=== PATIENT | female | born 1990 | race Caucasian/White ===

== ENCOUNTER 2016-10-04 03:38 | Emergency (ER) | payer OTHER, MEDICAID ==
[2016-10-04] MEDS ORDERED: Ondansetron 4 MG/2 ML SDV IVPUSH ONE ×2 (04:08→04:40)
[2016-10-04] MEDS ORDERED: HYDROmorphone 0.5 MG/0.5 ML Syringe IVPUSH ONE ×2 (04:09→04:41)
[2016-10-04] MEDS ORDERED: Sodium Chloride 0.9% 1,000 ML IV SCH ×2 (04:15→05:10)
--- NOTE | 2016-10-04 04:16 | EDM.PDOC ---
ED HPI HEADACHE COMPLAINT - General Chief Complaint: Headache Stated Complaint: VOMITING AND HEADACHE Time Seen by Provider: 10/04/16 04:10 Source: Reports: Patient History Limitations: Reports: No limitations - History of Present Illness INITIAL COMMENTS - FREE TEXT/NARRATIVE: pt arrived with a rt sided headache which started yesterday about 2 thirty. She normally takes imitrex but she took one and vomited it up. She states this usually works for her. Timing/Duration: Reports: hour(s):, getting worse Location: Reports: temporal, right Quality: Reports: pounding Severity: Reports: severe Associated Symptoms: Reports: photophobia - Related Data Allergies/ADRs: Allergies Allergy/AdvReac Type Severity Reaction Status Date / Time amoxicillin [Amoxicillin] Allergy Unknown Rash Verified 10/04/16 03:51 Home Meds: Home Meds SUMAtriptan Succinate [Sumatriptan Succinate] 100 mg PO ASDIRECTED PRN 06/14/13 [History] Cyclobenzaprine HCl [Cyclobenzaprine HCl] 10 mg PO BEDTIME PRN 12/23/15 [History ] Vit/Iron Fumarate/FA [ Tablet] 1 tab PO DAILY 10/04/16 [History ] 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: Neurological History: Reports: Migraines Psychiatric History: Reports: Anxiety - Infectious Disease History Infectious Disease History: Reports: None - Past Surgical History HEENT Surgical History: Reports: Tonsillectomy GI Surgical History: Reports: Hernia, abdominal Female Surgical History: Reports: section Social & Family History - Tobacco Use Smoking Status *Q: Never Smoker Second Hand Smoke Exposure: No - Caffeine Use Caffeine Use: Reports: None - Alcohol Use Days Per Week of Alcohol Use: 1 Number of Drinks Per Day: 2 Total Drinks Per Week: 2 - Recreational Drug Use Recreational Drug Use: No - Living Situation & Occupation Living situation: Reports: single (living in [facility]) ED ROS GENERAL - Review of Systems Review Of Systems: See Below Constitutional: Reports: no symptoms HEENT: Reports: No symptoms Respiratory: Reports: no symptoms Cardiovascular: Reports: No symptoms Endocrine: Reports: no symptoms GI/Abdominal: Reports: Nausea, Vomiting : Reports: no symptoms Musculoskeletal: Reports: muscle pain, other ( cervical area. ) Skin: Reports: no symptoms Neurological: Reports: headache - Physical Exam Exam: See Below Text/Narrative:: pt has a rt sided headache with no visual symptoms except lite sensitivity. Exam Limited By: No limitations General Appearance: alert, severe distress Ears: normal TMs Nose: normal inspection Throat/Mouth: Normal inspection Head Exam: atraumatic Neck: normal inspection Respiratory/Chest: no respiratory distress Cardiovascular: regular rate, rhythm GI/Abdominal: soft, non tender Rectal (Female) Exam: Deferred Neuro Exam (Abbreviated): alert, oriented, normal cognition Back Exam: normal inspection Extremities: normal inspection Psychiatric: normal affect Course - Vital Signs Last Recorded V/S: Last Vital Signs Temp 36.2 C 10/04/16 03:52 Pulse 82 10/04/16 03:52 Resp 15 10/04/16 03:52 BP 142/67 H 10/04/16 03:52 Pulse Ox 97 10/04/16 03:52 - Orders/Labs/Meds Orders: Active Orders 24 hr Category Date Time Status Sodium Chloride 0.9% [Normal Saline] 1,000 ml Med 10/04/16 04:15 Active IV ASDIRECTED Sodium Chloride 0.9% [Normal Saline] 1,000 ml Med 10/04/16 05:10 Active IV ASDIRECTED Medication Orders Sodium Chloride (Normal Saline) 1,000 mls @ 999 mls/hr IV ASDIRECTED DEANNA Last Admin: 10/04/16 04:14 Dose: 999 mls/hr Sodium Chloride (Normal Saline) 1,000 mls @ 999 mls/hr IV ASDIRECTED DEANNA Last Admin: 10/04/16 05:12 Dose: 999 mls/hr Meds: Medications Generic Name Dose Route Start Last Admin Trade Name Freq PRN Reason Stop Dose Admin Sodium Chloride 1,000 mls @ 999 mls/hr 10/04/16 04:15 10/04/16 04:14 Normal Saline IV 999 mls/hr ASDIRECTED DEANNA Administration Sodium Chloride 1,000 mls @ 999 mls/hr 10/04/16 05:10 10/04/16 05:12 Normal Saline IV 999 mls/hr ASDIRECTED DEANNA Administration Discontinued Medications Generic Name Dose Route Start Last Admin Trade Name Freq PRN Reason Stop Dose Admin Hydromorphone HCl 0.5 mg 10/04/16 04:09 10/04/16 04:20 Dilaudid IVPUSH 10/04/16 04:10 0.5 mg ONETIME ONE Administration Hydromorphone HCl 0.5 mg 10/04/16 04:41 10/04/16 04:47 Dilaudid IVPUSH 10/04/16 04:42 0.5 mg ONETIME ONE Administration Lorazepam 0.5 mg 10/04/16 05:13 10/04/16 05:20 Ativan IVPUSH 10/04/16 05:14 0.5 mg ONETIME ONE Administration Lorazepam 0.5 mg 10/04/16 06:58 Ativan IVPUSH 10/04/16 06:59 ONETIME ONE Ondansetron HCl 4 mg 10/04/16 04:08 10/04/16 04:18 Zofran IVPUSH 10/04/16 04:09 4 mg ONETIME ONE Administration Ondansetron HCl 4 mg 10/04/16 04:40 10/04/16 04:46 Zofran IVPUSH 10/04/16 04:41 4 mg ONETIME ONE Administration - Re-Assessments/Exams Free Text/Narrative Re-Assessment/Exam: 10/04/16 07:03 pt was given dilaudid, ativan and zoforan and her pain is down to a 4-5 Departure - Departure Time of Disposition: 07:04 Disposition: Home, Self-Care 01 Condition: fair Clinical Impression: Migraine Forms: ED Department Discharge Care Plan Goals: rtc ifrest,push fluids. problems, - My Orders Last 24 Hours: My Active Orders 10/04/16 04:15 Sodium Chloride 0.9% [Normal Saline] 1,000 ml IV ASDIRECTED 10/04/16 05:10 Sodium Chloride 0.9% [Normal Saline] 1,000 ml IV ASDIRECTED - Assessment/Plan Last 24 Hours: My Active Orders 10/04/16 04:15 Sodium Chloride 0.9% [Normal Saline] 1,000 ml IV ASDIRECTED 10/04/16 05:10 Sodium Chloride 0.9% [Normal Saline] 1,000 ml IV ASDIRECTED
[2016-10-04] MEDS ORDERED: LORazepam 2 MG/ML MDV IVPUSH ONE ×2 (05:13→06:58)
[2016-10-04] MEDS ORDERED: Acetaminophen/oxyCODONE 325-5 MG Tab PO ONE (07:05)
[2016-10-04 07:21] VITALS: BP 111/68
== END 2016-10-04 07:25 | disposition home or self-care (01) ==
LOC: JP.ED 03:38
DX: G43.909 Migraine, unspecified, not intractable, without status migrainosus (principal); F41.9 Anxiety disorder, unspecified; Z98.890 Other specified postprocedural states; Z79.899 Other long term (current) drug therapy; Z88.1 Allergy status to other antibiotic agents
CPT/HCPCS: 96361; 96374; 96375; 96376; 99284; A9270; J1170; J2060; J2405; J7040

== ENCOUNTER 2016-10-11 14:10 | Emergency (ER) | payer OTHER, MEDICAID ==
[2016-10-11] MEDS ORDERED: Lidocaine 4% 5 ML Amp NEB ONE (15:24)
--- NOTE | 2016-10-11 15:33 | EDM.PDOC ---
<Christine Bacon - Last Filed: 10/11/16 17:31> ED HPI HEADACHE COMPLAINT - General Chief Complaint: Headache Stated Complaint: MIGRAINE, 9 WKS PREG Time Seen by Provider: 10/11/16 15:26 Source: Reports: Patient History Limitations: Reports: No limitations - History of Present Illness INITIAL COMMENTS - FREE TEXT/NARRATIVE: Pt arrived with a migraine headache mainly on the rt side. She has been vomiting. Timing/Duration: Reports: hour(s):, other ( Started about 6 am. ) Location: Reports: temporal, right Quality: Reports: pounding, squeezing Associated Symptoms: Reports: photophobia, other ( vomiting. 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: Neurological History: Reports: Migraines Psychiatric History: Reports: Anxiety - Infectious Disease History Infectious Disease History: Reports: None - Past Surgical History HEENT Surgical History: Reports: Tonsillectomy GI Surgical History: Reports: Hernia, abdominal Female Surgical History: Reports: section Social & Family History - Tobacco Use Smoking Status *Q: Never Smoker Second Hand Smoke Exposure: No - Caffeine Use Caffeine Use: Reports: None - Alcohol Use Days Per Week of Alcohol Use: 1 Number of Drinks Per Day: 2 Total Drinks Per Week: 2 - Recreational Drug Use Recreational Drug Use: No - Living Situation & Occupation Living situation: Reports: single (living in [facility]) ED ROS GENERAL - Review of Systems Review Of Systems: See Below Constitutional: Reports: no symptoms HEENT: Reports: No symptoms Respiratory: Reports: no symptoms Cardiovascular: Reports: No symptoms Endocrine: Reports: no symptoms GI/Abdominal: Reports: Vomiting Musculoskeletal: Reports: no symptoms Skin: Reports: no symptoms Neurological: Reports: headache Psychiatric: Reports: No symptoms - Physical Exam Exam: See Below Text/Narrative:: Pt arrived with a severe headache on the rt side. Exam Limited By: No limitations General Appearance: alert, anxious Ears: normal TMs Nose: normal inspection Throat/Mouth: Normal inspection Head Exam: atraumatic Neck: normal inspection Respiratory/Chest: no respiratory distress Cardiovascular: regular rate, rhythm GI/Abdominal: soft, non tender Rectal (Female) Exam: Deferred Neuro Exam (Abbreviated): alert, oriented, normal cognition Back Exam: normal inspection Extremities: normal inspection Psychiatric: anxious Course - Vital Signs Last Recorded V/S: Last Vital Signs Temp 37.3 C 10/11/16 19:22 Pulse 72 10/11/16 19:22 Resp 16 10/11/16 19:22 BP 117/68 10/11/16 19:22 Pulse Ox 99 10/11/16 19:22 - Orders/Labs/Meds Orders: Active Orders 24 hr Category Date Time Status Sodium Chloride 0.9% [Normal Saline] 1,000 ml Med 10/11/16 17:30 Active IV ASDIRECTED Medication Orders Sodium Chloride (Normal Saline) 1,000 mls @ 999 mls/hr IV ASDIRECTED DEANNA Last Admin: 10/11/16 19:18 Dose: 999 mls/hr Infusion: 10/11/16 18:56 Dose: 999 mls/hr Admin: 10/11/16 17:55 Dose: 999 mls/hr Meds: Medications Generic Name Dose Route Start Last Admin Trade Name Freq PRN Reason Stop Dose Admin Sodium Chloride 1,000 mls @ 999 mls/hr 10/11/16 17:30 10/11/16 19:18 Normal Saline IV 999 mls/hr ASDIRECTED DEANNA Administration Discontinued Medications Generic Name Dose Route Start Last Admin Trade Name Freq PRN Reason Stop Dose Admin Acetaminophen/Hydrocodone Bitart 1 tab 10/11/16 16:57 10/11/16 17:03 [place] 325-5 Mg PO 10/11/16 16:58 1 tab ONETIME ONE Administration Hydromorphone HCl 0.5 mg 10/11/16 17:31 10/11/16 17:56 Dilaudid IVPUSH 10/11/16 17:32 0.5 mg ONETIME ONE Administration Hydromorphone HCl 1 mg 10/11/16 18:39 10/11/16 19:16 Dilaudid IVPUSH 10/11/16 18:40 1 mg ONETIME ONE Administration Sodium Chloride 1,000 mls @ 999 mls/hr 10/11/16 19:17 10/11/16 19:18 Normal Saline IV 10/11/16 20:17 Not Given .BOLUS ONE Lidocaine HCl 5 ml 10/11/16 15:24 10/11/16 15:55 Xylocaine-Mpf 4% NEB 10/11/16 15:25 5 ml ONETIME ONE Administration Ondansetron HCl 4 mg 10/11/16 15:36 10/11/16 15:55 Zofran Odt PO 10/11/16 15:37 4 mg ONETIME ONE Administration Ondansetron HCl 4 mg 10/11/16 17:30 10/11/16 17:54 Zofran IVPUSH 10/11/16 17:31 4 mg ONETIME ONE Administration Ondansetron HCl 4 mg 10/11/16 19:53 10/11/16 20:03 Zofran IVPUSH 10/11/16 19:54 4 mg ONETIME ONE Administration - Re-Assessments/Exams Free Text/Narrative Re-Assessment/Exam: 10/11/16 17:01 pt was given 1.5 cc of lidocain in each nostril with an atomixer as a trial to relieve the migraine headache. She was given zoforan 4mg subling for her nausea. She was also given norco 5/325 . 10/11/16 17:31 pt did not get relief with the lidocaine. She was given zoforan iv and dilaudid .5 and a liter of fluid. Departure - Departure Disposition: Home, Self-Care 01 Clinical Impression: Migraine Forms: ED Department Discharge Additional Instructions: Please followup with your doctor to see if he or she could help you with your migraines and we'll be happy to see you back if you need to see us again for your migraines <Darrel Cardoso - Last Filed: 10/11/16 20:45> ED HPI HEADACHE COMPLAINT - History of Present Illness INITIAL COMMENTS - FREE TEXT/NARRATIVE: Patient is doing some better and wants to go and then try to get some sleep now. She has received 2 L of fluids and I did give her 1 mg of Dilaudid and also some more Zofran her is here to take her home. Departure - Departure Time of Disposition: 20:45
[2016-10-11] MEDS ORDERED: Ondansetron 4 MG Tab.DIS PO ONE (15:36)
[2016-10-11] MEDS ORDERED: Acetaminophen/HYDROcodone 325-5 MG Tab PO ONE (16:57)
[2016-10-11] MEDS ORDERED: Ondansetron 4 MG/2 ML SDV IVPUSH ONE ×2 (17:30→19:53)
[2016-10-11] MEDS ORDERED: HYDROmorphone 0.5 MG/0.5 ML Syringe IVPUSH ONE (17:31)
[2016-10-11] MEDS: Sodium Chloride 0.9% 1,000 ML IV SCH ×2 (17:55→19:18)
[2016-10-11] MEDS ORDERED: HYDROmorphone 1 MG/ML Syringe IVPUSH ONE (18:39)
[2016-10-11] MEDS ORDERED: Sodium Chloride 0.9% 1,000 ML IV ONE (19:17)
[2016-10-11 19:24] VITALS: BP 117/68
== END 2016-10-11 20:57 | disposition home or self-care (01) ==
LOC: JP.ED 14:10
DX: G43.909 Migraine, unspecified, not intractable, without status migrainosus (principal); F41.9 Anxiety disorder, unspecified; Z98.890 Other specified postprocedural states; Z88.1 Allergy status to other antibiotic agents; Z79.899 Other long term (current) drug therapy
CPT/HCPCS: 96361; 96374; 96375; 96376; 99283; A9270; J1170; J2405; J7040

== ENCOUNTER 2016-11-16 19:53 | Emergency (ER) | payer MEDICAID, OTHER ==
[2016-11-16 20:44] VITALS: BP 126/72
[2016-11-16] MEDS ORDERED: Sodium Phosphate,Monobasic/Sodium Phosphate,Dibasic Enema 133 ML Bottle RECTAL ONE ×2 (20:58→22:04)
--- NOTE | 2016-11-16 23:06 | EDM.PDOC ---
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 She basically is presenting now because she feels constipated. She has not had a good bowel movement for over a week. Her OB doctor recommended MiraLax which she took but now she's having some cramping. She's had no fevers or chills nausea or vomiting. Her appointments at the OB doctor went well today she's had an ultrasound confirming dates.] Review of systems: As per history of present illness and below otherwise all systems reviewed and negative. Past medical history: As per history of present illness and as reviewed below otherwise noncontributory. Surgical history: As per history of present illness and as reviewed below otherwise noncontributory. Social history: No reported history of drug or alcohol abuse. Family history: As per history of present illness and as reviewed below otherwise noncontributory. Physical exam: HEENT: Atraumatic, normocephalic, pupils reactive, negative for conjunctival pallor or scleral icterus, mucous membranes moist, throat clear, neck supple, nontender, trachea midline. Lungs: Clear to auscultation, breath sounds equal bilaterally, chest nontender. Heart: S1S2, regular, negative for clicks, rubs, or JVD. Abdomen: She does have some diffuse tenderness to palpation throughout her upper abdomen. It is doughy in consistency bowel sounds are present Pelvis: Stable nontender. Genitourinary: Deferred. Rectal: Deferred. Extremities: Atraumatic, negative for cords or calf pain. Neurovascular unremarkable. Neuro: Awake, alert, oriented. Cranial nerves II through XII unremarkable. Cerebellum unremarkable. Motor and sensory unremarkable throughout. Exam nonfocal. Diagnostics: [] Therapeutics: [Give her 2 fleets enemas and she passed a lot of gas and felt better but very little stool] Impression: [Constipation] Plan: [She will continue to try to help herself at home at this point. She has been educated that that she can do this at home now.] Definitive disposition and diagnosis as appropriate pending reevaluation and review of above. 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: Neurological History: Reports: Migraines Psychiatric History: Reports: Anxiety - Infectious Disease History Infectious Disease History: Reports: Chicken pox - Past Surgical History HEENT Surgical History: Reports: Tonsillectomy GI Surgical History: Reports: Hernia, abdominal Female Surgical History: Reports: section Social & Family History - Tobacco Use Smoking Status *Q: Never Smoker Second Hand Smoke Exposure: No - Caffeine Use Caffeine Use: Reports: None - Alcohol Use Days Per Week of Alcohol Use: 1 Number of Drinks Per Day: 2 Total Drinks Per Week: 2 - Recreational Drug Use Recreational Drug Use: No - Living Situation & Occupation Living situation: Reports: single (living in [facility]) ED ROS GENERAL - Review of Systems Review Of Systems: ROS reveals no pertinent complaints other than HPI. ED EXAM, GI/ABD - Physical Exam Exam: See Below Course - Vital Signs Last Recorded V/S: Last Vital Signs Temp 35.8 C 11/16/16 20:34 Pulse 87 11/16/16 20:34 Resp 18 11/16/16 20:34 BP 126/72 11/16/16 20:34 Pulse Ox 100 11/16/16 20:34 - Orders/Labs/Meds Meds: Medications Discontinued Medications Generic Name Dose Route Start Last Admin Trade Name Freq PRN Reason Stop Dose Admin Sodium Biphosphate/Sodium Phosphate 133 ml 11/16/16 20:58 11/16/16 21:41 Fleet Enema RECTAL 11/16/16 20:59 133 ml ONETIME ONE Administration Sodium Biphosphate/Sodium Phosphate 133 ml 11/16/16 22:04 11/16/16 22:27 Fleet Enema RECTAL 11/16/16 22:05 133 ml ONETIME ONE Administration Departure - Departure Time of Disposition: 23:05 Disposition: Home, Self-Care 01 Condition: good Clinical Impression: Constipation Qualifiers: Constipation type: unspecified constipation type Qualified Code(s): K59.00 - Constipation, unspecified Forms: ED Department Discharge
== END 2016-11-16 23:17 | disposition home or self-care (01) ==
LOC: JP.ED 19:53
DX: O99.89 Other specified diseases and conditions complicating pregnancy, childbirth and the puerperium (principal); K59.00 Constipation, unspecified; F41.9 Anxiety disorder, unspecified; Z88.1 Allergy status to other antibiotic agents; Z79.899 Other long term (current) drug therapy; Z98.890 Other specified postprocedural states; Z3A.15 15 weeks gestation of pregnancy
CPT/HCPCS: 99284; A9270

== ENCOUNTER 2019-09-08 09:32 | Emergency (ER) | payer MEDICAID ==
[2019-09-08 09:53] VITALS: BP 124/61; PULSE 85
[2019-09-08] MEDS ORDERED: Ondansetron 4 MG/2 ML SDV IVPUSH ONE (10:04)
[2019-09-08] MEDS ORDERED: Ketorolac 30 MG/ML SDV IVPUSH ONE (10:04)
[2019-09-08] MEDS ORDERED: methylPREDNISolone Sodium Succinate 125 MG/2 ML SDV IVPUSH ONE (10:04)
--- NOTE | 2019-09-08 10:11 | EDM.PDOC ---
ED HPI GENERAL MEDICAL PROBLEM - General Chief Complaint: Headache Stated Complaint: MIGRAINE Time Seen by Provider: 09/08/19 09:55 Source of Information: Reports: Patient History Limitations: Reports: No Limitations - History of Present Illness INITIAL COMMENTS - FREE TEXT/NARRATIVE: 28-year-old female with chronic migraines has had a persistent right-sided headache for the past week. It has waxed and waned and she has used a couple doses of Imitrex with variable results. She missed work today so came in to get more aggressive treatment. Nauseated but no vomiting. No fevers or chills, no cold symptoms. Onset: Gradual Duration: Day(s): (7 days), Waxing/Waning Location: Reports: Head (Especially right frontal and right parietal with some periorbital involvement) Associated Symptoms: Reports: Other (Nausea but no vomiting) Right Headache Pain Score (Numeric/FACES): 10 - Related Data Allergies Allergy/AdvReac Type Severity Reaction Status Date / Time amoxicillin [Amoxicillin] Allergy Unknown Rash Verified 07/21/18 22:21 Home Meds: Home Meds SUMAtriptan succinate [Sumatriptan Succinate] 100 mg PO ASDIRECTED PRN 06/14/13 [History] Citalopram Hydrobromide [Celexa] 20 mg PO DAILY 02/19/17 [History] QUEtiapine [SEROquel XR] 50 mg PO BEDTIME 09/08/19 [History] 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: Neurological History: Reports: Migraines Psychiatric History: Reports: Anxiety - Infectious Disease History Infectious Disease History: Reports: Chicken Pox - Past Surgical History HEENT Surgical History: Reports: Tonsillectomy GI Surgical History: Reports: Hernia, Abdominal Female Surgical History: Reports: Section Social & Family History - Tobacco Use Smoking Status *Q: Never Smoker - Caffeine Use Caffeine Use: Reports: Coffee, Soda - Recreational Drug Use Recreational Drug Use: No - Living Situation & Occupation Living situation: Reports: Single (has two children, lives with Parents.) ED ROS GENERAL - Review of Systems Review Of Systems: See Below Constitutional: Reports: Malaise. Denies: Fever, Chills HEENT: Denies: Vision Change (Some photophobia but no vision changes) Respiratory: Denies: Shortness of Breath Cardiovascular: Denies: Chest Pain GI/Abdominal: Reports: Nausea. Denies: Abdominal Pain, Diarrhea, Vomiting Musculoskeletal: Reports: No Symptoms Skin: Reports: No Symptoms Neurological: Reports: Headache. Denies: Confusion, Dizziness, Difficulty Walking, Weakness, Gait Disturbance - Physical Exam Exam: See Below Exam Limited By: No Limitations General Appearance: Alert, No Apparent Distress (Looks uncomfortable, photophobic but no acute distress) Eye Exam: Bilateral Eye: Normal Inspection Head Exam: Atraumatic Respiratory/Chest: No Respiratory Distress Neuro Exam (Abbreviated): Alert, Oriented, No Motor/Sensory Deficits Skin Exam: Warm, Dry Course - Vital Signs Last Recorded V/S: Last Vital Signs Temp 95.9 F 09/08/19 09:54 Pulse 85 09/08/19 09:54 Resp 16 09/08/19 09:54 BP 124/61 09/08/19 09:54 Pulse Ox 98 09/08/19 09:54 - Orders/Labs/Meds Meds: Medications Discontinued Medications Generic Name Dose Route Start Last Admin Trade Name Freq PRN Reason Stop Dose Admin Hydromorphone HCl 0.5 mg 09/08/19 10:49 09/08/19 10:53 Dilaudid IVPUSH 09/08/19 10:50 0.5 mg ONETIME ONE Administration Sodium Chloride 1,000 mls @ 1,000 mls/hr 09/08/19 10:15 09/08/19 10:13 Normal Saline IV 1,000 mls/hr ASDIRECTED DEANNA Administration Ketorolac Tromethamine 30 mg 09/08/19 10:04 09/08/19 10:10 Toradol IVPUSH 09/08/19 10:05 30 mg ONETIME ONE Administration Methylprednisolone Sodium Succinate 125 mg 09/08/19 10:04 09/08/19 10:40 Solu-Medrol IVPUSH 09/08/19 10:05 125 mg ONETIME ONE Administration Ondansetron HCl 4 mg 09/08/19 10:04 09/08/19 10:13 Zofran IVPUSH 09/08/19 10:05 4 mg ONETIME ONE Administration - Re-Assessments/Exams Free Text/Narrative Re-Assessment/Exam: 09/08/19 10:12 An IV was started, patient was given 1 L normal saline, 4 mg of IV Zofran and 30 mg of IV Toradol. This was followed by 125 mg of Solu-Medrol. She'll be reevaluated in 30-45 minutes. 09/08/19 10:45 Pain is moderately improved, patient will be given 1 mg of IV Dilaudid and discharged. She has responded well to this in the past. Rest today and recheck tomorrow as scheduled, she already has an appointment with her primary provider. Departure - Departure Time of Disposition: 10:59 Disposition: Home, Self-Care 01 Clinical Impression: Migraine headache Qualifiers: Migraine type: without aura Status migrainosus presence: without status migrainosus Intractability: not intractable Qualified Code(s): G43.009 - Migraine without aura, not intractable, without status migrainosus - Discharge Information Instructions: Migraine Headache, [id number] Referrals: PCP,None [Primary Care Provider] - Forms: ED Department Discharge Care Plan Goals: Rest today, continue your current medications and recheck tomorrow as scheduled. Sepsis Event Note - Evaluation Sepsis Screening Result: No Definite Risk - Focused Exam Vital Signs: Vital Signs Temp Pulse Resp BP Pulse Ox 09/08/19 09:54 95.9 F 85 16 124/61 98 09/08/19 09:52 95.9 F 85 16 124/61 98 Date Exam was Performed: 09/08/19 Time Exam was Performed: 11:12
[2019-09-08] MEDS ORDERED: Sodium Chloride 0.9% 1,000 ML IV SCH (10:15)
[2019-09-08] MEDS ORDERED: HYDROmorphone 0.5 MG/0.5 ML Syringe IVPUSH ONE (10:49)
== END 2019-09-08 10:59 | disposition home or self-care (01) ==
LOC: JP.ED 09:32
DX: G43.009 Migraine without aura, not intractable, without status migrainosus (principal); Z88.0 Allergy status to penicillin
CPT/HCPCS: 96361; 96374; 96375; 99284; J1170; J1885; J2405; J2930; J7030

== ENCOUNTER 2019-11-06 11:54 | Emergency (ER) | payer MEDICAID ==
[2019-11-06] MEDS ORDERED: Lactated Ringers 1,000 ML IV ONE (12:40)
[2019-11-06] MEDS ORDERED: Ketorolac 30 MG/ML SDV IVPUSH ONE (12:40)
[2019-11-06] MEDS ORDERED: Ondansetron 4 MG/2 ML SDV IVPUSH ONE (12:40)
[2019-11-06] MEDS ORDERED: diphenhydrAMINE 50 MG/ML SDV IVPUSH ONE (12:41)
[2019-11-06] MEDS ORDERED: Prochlorperazine 10 MG/2 ML SDV IVPUSH ONE (12:41)
[2019-11-06] MEDS ORDERED: Sodium Chloride 0.9% 10 ML Syringe FLUSH PRN (12:41)
--- NOTE | 2019-11-06 12:47 | EDM.PDOC ---
ED HPI GENERAL MEDICAL PROBLEM - General Chief Complaint: Headache Stated Complaint: MIGRAINE WITH VOMITING Time Seen by Provider: 11/06/19 12:36 Source of Information: Reports: Patient, Old Records, RN Notes Reviewed History Limitations: Reports: No Limitations - History of Present Illness INITIAL COMMENTS - FREE TEXT/NARRATIVE: 28-year-old female presents emergency department today complaint of migraine headache, she has a long history of migraine headaches this 1 started at 630 this morning she did take her Imitrex without relief she states it is typical migraine for her photophobia with nausea and vomiting last migraine was about 2 months prior Headache Pain Score (Numeric/FACES): 10 - Related Data Allergies Allergy/AdvReac Type Severity Reaction Status Date / Time amoxicillin [Amoxicillin] Allergy Mild Rash Verified 11/06/19 12:08 Home Meds: Home Meds SUMAtriptan succinate [Sumatriptan Succinate] 100 mg PO ASDIRECTED PRN 06/14/13 [History] Citalopram Hydrobromide [Celexa] 20 mg PO DAILY 02/19/17 [History] QUEtiapine [SEROquel XR] 50 mg PO BEDTIME 09/08/19 [History] 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: Neurological History: Reports: Migraines Psychiatric History: Reports: Anxiety - Infectious Disease History Infectious Disease History: Reports: Chicken Pox - Past Surgical History HEENT Surgical History: Reports: Tonsillectomy GI Surgical History: Reports: Hernia, Abdominal Female Surgical History: Reports: Section Social & Family History - Tobacco Use Smoking Status *Q: Never Smoker - Caffeine Use Caffeine Use: Reports: None - Recreational Drug Use Recreational Drug Use: No - Living Situation & Occupation Living situation: Reports: Single (has two children, lives with Parents.) ED ROS GENERAL - Review of Systems Review Of Systems: See Below Constitutional: Reports: No Symptoms HEENT: Reports: Eye Pain Respiratory: Reports: No Symptoms Cardiovascular: Reports: No Symptoms GI/Abdominal: Reports: Nausea, Vomiting. Denies: Abdominal Pain Neurological: Reports: Headache - Physical Exam Exam: See Below Exam Limited By: No Limitations General Appearance: Alert, WD/WN, No Apparent Distress Eye Exam: Bilateral Eye: EOMI, Normal Fundi, Normal Inspection, PERRL Respiratory/Chest: No Respiratory Distress Course - Vital Signs Last Recorded V/S: Last Vital Signs Temp 95.4 F L 11/06/19 12:03 Pulse 75 11/06/19 13:47 Resp 18 11/06/19 13:47 BP 96/44 L 11/06/19 13:47 Pulse Ox 99 11/06/19 13:47 - Orders/Labs/Meds Orders: Active Orders 24 hr Category Date Time Status Peripheral IV Care [RC] . DIRECTED Care 11/06/19 12:41 Active Sodium Chloride 0.9% [Saline Flush] Med 11/06/19 12:41 Active 10 ml FLUSH ASDIRECTED PRN Peripheral IV Insertion Adult [OM.PC] Urgent Oth 11/06/19 12:40 Ordered Medication Orders Sodium Chloride (Saline Flush) 10 ml FLUSH ASDIRECTED PRN PRN Reason: Keep Vein Open Last Admin: 11/06/19 13:10 Dose: 10 ml Meds: Medications Generic Name Dose Route Start Last Admin Trade Name Freq PRN Reason Stop Dose Admin Sodium Chloride 10 ml 11/06/19 12:41 11/06/19 13:10 Saline Flush FLUSH 10 ml ASDIRECTED PRN Administration Keep Vein Open Discontinued Medications Generic Name Dose Route Start Last Admin Trade Name Freq PRN Reason Stop Dose Admin Diphenhydramine HCl 50 mg 11/06/19 12:41 11/06/19 12:58 Benadryl IVPUSH 11/06/19 12:42 50 mg ONETIME ONE Administration Lactated Ringer's 1,000 mls @ 999 mls/hr 11/06/19 12:40 11/06/19 13:10 Ringers, Lactated IV 11/06/19 13:40 999 mls/hr BOLUS ONE Administration Ketorolac Tromethamine 30 mg 11/06/19 12:40 11/06/19 13:04 Toradol IVPUSH 11/06/19 12:41 30 mg ONETIME ONE Administration Ondansetron HCl 4 mg 11/06/19 12:40 11/06/19 13:08 Zofran IVPUSH 11/06/19 12:41 4 mg ONETIME ONE Administration Prochlorperazine Edisylate 5 mg 11/06/19 12:41 11/06/19 13:01 Compazine IVPUSH 11/06/19 12:42 5 mg ONETIME ONE Administration Departure - Departure Time of Disposition: 14:14 Disposition: Home, Self-Care 01 Condition: Fair Clinical Impression: Migraine - Discharge Information Instructions: Migraine Headache, [id number] Referrals: PCP,None [Primary Care Provider] - Forms: ED Department Discharge, ED Return to Work/School Form Additional Instructions: Resume your regular medications, please followup with your primary care provider in 3-5 days if not better, please call return to the emergency department with worsening of symptoms. Sepsis Event Note - Evaluation Sepsis Screening Result: No Definite Risk - Focused Exam Vital Signs: Vital Signs Temp Pulse Resp BP Pulse Ox 11/06/19 13:47 75 18 96/44 L 99 11/06/19 12:03 95.4 F L 98 18 120/76 97 Date Exam was Performed: 11/06/19 Time Exam was Performed: 14:13 - My Orders Last 24 Hours: My Active Orders 11/06/19 12:40 Peripheral IV Insertion Adult [OM.PC] Urgent 11/06/19 12:41 Peripheral IV Care [RC] . DIRECTED Sodium Chloride 0.9% [Saline Flush] 10 ml FLUSH ASDIRECTED PRN - Assessment/Plan Last 24 Hours: My Active Orders 11/06/19 12:40 Peripheral IV Insertion Adult [OM.PC] Urgent 11/06/19 12:41 Peripheral IV Care [RC] . DIRECTED Sodium Chloride 0.9% [Saline Flush] 10 ml FLUSH ASDIRECTED PRN Plan: Assessment Acuity = acute Site and laterality = migraine without aura Etiology = unknown Manifestations = nausea and vomiting Location of injury = Home Lab values = none Plan Good improvement 1 L fluids, Toradol, Benadryl and Compazine follow-up primary care as needed continue with current medications This note was dictated using [employer] voice recognition software please call with any questions on syntax or grammar.
[2019-11-06 13:48] VITALS: BP 96/44; PULSE 75
== END 2019-11-06 14:25 | disposition home or self-care (01) ==
LOC: JP.ED 11:54
DX: G43.909 Migraine, unspecified, not intractable, without status migrainosus (principal); Z88.1 Allergy status to other antibiotic agents
CPT/HCPCS: 96361; 96374; 96375; 99284; J0780; J1200; J1885; J2405; J7120

== ENCOUNTER 2020-02-12 02:05 | Emergency (ER) | payer MEDICAID ==
[2020-02-12 02:13] VITALS: BP 131/67; PULSE 77
[2020-02-12] MEDS ORDERED: Lidocaine/EPINEPHrine/Tetracaine Soln 5 ML Each TOP ONE (02:15)
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
[2020-02-12] MEDS ORDERED: Ketorolac 60 MG/2 ML SDV IM ONE (02:58)
--- NOTE | 2020-02-12 03:50 | CRLCT ---
Indication: Trauma Technique: Nonenhanced axial CT imaging through the head. Coronal reconstructions are provided. Comparison: CT head without contrast 06/21/2018 Findings: There is no intracranial hemorrhage, edema, or mass effect. There is normal attenuation of the brain parenchyma. The ventricles are normal in size. The basal cisterns are patent. The calvarium is intact. The visualized paranasal sinuses and mastoid air cells are aerated. Impression: No acute intracranial process. Please note that all CT scans at this facility use dose modulation, iterative reconstruction, and/or weight-based dosing when appropriate to reduce radiation dose to as low as reasonably achievable. Dictated by Costa Bower MD @ Feb 12 2020 3:46AM Signed by Dr. Costa Bower @ Feb 12 2020 3:48AM
--- NOTE | 2020-02-12 03:56 | CRLCT ---
Indication: Trauma Technique: Nonenhanced axial CT images through the face. Sagittal and coronal reconstructions are provided. Comparison: None Findings: There is soft tissue edema in the left infraorbital region. There is no acute facial fracture. The orbital contents are normal. Mild mucosal thickening is noted in the maxillary sinuses. The paranasal sinuses are otherwise aerated. The visualized skullbase is intact. Impression: No acute facial fracture. Please note that all CT scans at this facility use dose modulation, iterative reconstruction, and/or weight-based dosing when appropriate to reduce radiation dose to as low as reasonably achievable. Dictated by Costa Bower MD @ Feb 12 2020 3:48AM Signed by Dr. Costa Bower @ Feb 12 2020 3:54AM
== END 2020-02-12 03:39 | disposition home or self-care (01) ==
LOC: JP.ED 02:05
DX: S01.412A Laceration without foreign body of left cheek and temporomandibular area, initial encounter (principal); Y04.0XXA Assault by unarmed brawl or fight, initial encounter
CPT/HCPCS: 12011; 70450; 70486; 96372; 99284; A9270; J1885

== ENCOUNTER 2020-08-21 03:27 | Emergency (ER) | payer MEDICAID ==
[2020-08-21] MEDS ORDERED: Sodium Chloride 0.9% 10 ML Syringe FLUSH PRN (03:40)
[2020-08-21] MEDS ORDERED: Prochlorperazine 10 MG/2 ML SDV IVPUSH ONE (03:40)
[2020-08-21] MEDS ORDERED: diphenhydrAMINE 50 MG/ML SDV IVPUSH ONE (03:40)
[2020-08-21] MEDS ORDERED: Ketorolac 30 MG/ML SDV IVPUSH ONE (03:40)
[2020-08-21] MEDS ORDERED: Sodium Chloride 0.9% 1,000 ML IV ONE (03:40)
[2020-08-21 03:42] VITALS: BP 133/78; PULSE 96
--- NOTE | 2020-08-21 03:47 | EDM.PDOC ---
ED HPI GENERAL MEDICAL PROBLEM - General Chief Complaint: Headache Stated Complaint: Migraine Time Seen by Provider: 08/21/20 03:38 Source of Information: Reports: Patient, Old Records History Limitations: Reports: No Limitations - History of Present Illness INITIAL COMMENTS - FREE TEXT/NARRATIVE: Prince is a 29-year-old female presenting to the ED for evaluation and treatment of a migraine headache. Patient has a history significant for migraines with her last presentation to the ER for migraine being back in November 2019. She normally takes Imitrex at home. Headache started around midday tonight. She took her first Imitrex at 0010 without any relief. She took her second Imitrex at 0110 again without any improvement. She continued to have a bifrontal headache that is pounding and accompanied by photophobia, phonophobia, nausea and vomiting. She then tried to sleep without success prompting her to come in for treatment. Patient reports that this migraine is similar to her previous. 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: Neurological History: Reports: Migraines Psychiatric History: Reports: Anxiety - Infectious Disease History Infectious Disease History: Reports: Chicken Pox - Past Surgical History HEENT Surgical History: Reports: Tonsillectomy GI Surgical History: Reports: Hernia, Abdominal Female Surgical History: Reports: Section Social & Family History - Caffeine Use Caffeine Use: Reports: None - Living Situation & Occupation Living situation: Reports: Single (has two children, lives with Parents.) ED ROS GENERAL - Review of Systems Review Of Systems: See Below Constitutional: Reports: Malaise HEENT: Reports: Vision Change (Photophobia and phonophobia) Respiratory: Reports: No Symptoms Cardiovascular: Reports: No Symptoms Endocrine: Reports: No Symptoms GI/Abdominal: Reports: Nausea, Vomiting : Reports: No Symptoms Musculoskeletal: Reports: No Symptoms Skin: Reports: No Symptoms Neurological: Reports: Dizziness, Headache, Tremors Psychiatric: Reports: Anxiety Hematologic/Lymphatic: Reports: No Symptoms Immunologic: Reports: No Symptoms - Physical Exam Exam: See Below Exam Limited By: No Limitations General Appearance: Alert, Anxious, Moderate Distress Eye Exam: Bilateral Eye: EOMI, PERRL Nose: Normal Inspection, Normal Mucosa, Other (Tenderness with percussion over the frontal and maxillary sinuses) Throat/Mouth: Normal Inspection, Normal Lips, Normal Teeth, Normal Gums, Normal Oropharynx, Normal Voice, No Airway Compromise Head Exam: Atraumatic, Normocephalic Neck: Normal Inspection, Supple, Non-Tender, Full Range of Motion. No: Lymphadenopathy (R), Lymphadenopathy (L) Respiratory/Chest: No Respiratory Distress, Lungs Clear, Normal Breath Sounds Cardiovascular: Normal Peripheral Pulses, Regular Rate, Rhythm, No Murmur GI/Abdominal: Normal Bowel Sounds, Soft, Non-Tender Neuro Exam (Abbreviated): Alert, Oriented, Normal Cognition, No Motor/Sensory Deficits Back Exam: Normal Inspection, Full Range of Motion Extremities: Normal Inspection, Normal Range of Motion Psychiatric: Normal Affect, Anxious Course - Vital Signs Last Recorded V/S: Last Vital Signs Temp 37.0 C 08/21/20 03:39 Pulse 96 08/21/20 03:39 Resp 20 08/21/20 03:39 BP 133/78 08/21/20 03:39 Pulse Ox 99 08/21/20 03:39 - Orders/Labs/Meds Orders: Active Orders 24 hr Category Date Time Status Sodium Chloride 0.9% [Saline Flush] Med 08/21/20 03:40 Active 10 ml FLUSH ASDIRECTED PRN Saline Lock Insert [OM.PC] Routine Oth 08/21/20 03:40 Ordered Medication Orders Sodium Chloride (Saline Flush) 10 ml FLUSH ASDIRECTED PRN PRN Reason: Keep Vein Open Meds: Medications Generic Name Dose Route Start Last Admin Trade Name Freq PRN Reason Stop Dose Admin Sodium Chloride 10 ml 08/21/20 03:40 Saline Flush FLUSH ASDIRECTED PRN Keep Vein Open Discontinued Medications Generic Name Dose Route Start Last Admin Trade Name Freq PRN Reason Stop Dose Admin Diphenhydramine HCl 50 mg 08/21/20 03:40 08/21/20 03:54 Benadryl IVPUSH 08/21/20 03:41 50 mg ONETIME ONE Administration Sodium Chloride 1,000 mls @ 999 mls/hr 08/21/20 03:40 08/21/20 03:56 Normal Saline IV 08/21/20 04:40 999 mls/hr .BOLUS ONE Administration Ketorolac Tromethamine 30 mg 08/21/20 03:40 08/21/20 03:52 Toradol IVPUSH 08/21/20 03:41 30 mg ONETIME ONE Administration Prochlorperazine Edisylate 10 mg 08/21/20 03:40 08/21/20 03:49 Compazine IVPUSH 08/21/20 03:41 10 mg ONETIME ONE Administration - Re-Assessments/Exams Free Text/Narrative Re-Assessment/Exam: 08/21/20 03:50 Shadia is resenting with classic symptoms of her migraine headache. She attempted Imitrex x2 at home without improvement prompting her to come in for evaluation. An IV was established and she was given a liter of IV normal saline, Toradol 30 mg IV, Compazine 10 mg IV, and diphenhydramine 50 mg IV. Departure - Departure Time of Disposition: 04:57 Disposition: Home, Self-Care 01 Condition: Good Clinical Impression: Migraine - Discharge Information *PRESCRIPTION DRUG MONITORING PROGRAM REVIEWED*: Not Applicable *COPY OF PRESCRIPTION DRUG MONITORING REPORT IN PATIENT TRAVIS: Not Applicable Instructions: Migraine Headache, [id number] Referrals: PCP,None [Primary Care Provider] - Forms: ED Department Discharge Care Plan Goals: I encourage you to go home and rest. If headache returns, please return to the ED for further treatment. Sepsis Event Note (ED) - Focused Exam Vital Signs: Vital Signs Temp Pulse Resp BP Pulse Ox 08/21/20 03:39 37.0 C 96 20 133/78 99 - Problem List & Annotations (1) Migraine SNOMED Code(s): 13882989 Code(s): G43.909 - MIGRAINE, UNSP, NOT INTRACTABLE, WITHOUT STATUS MIGRAINOSUS Status: Acute Priority: Medium Current Visit: Yes - Problem List Review Problem List Initiated/Reviewed/Updated: Yes - My Orders Last 24 Hours: My Active Orders 08/21/20 03:40 Sodium Chloride 0.9% [Saline Flush] 10 ml FLUSH ASDIRECTED PRN Saline Lock Insert [OM.PC] Routine - Assessment/Plan Last 24 Hours: My Active Orders 08/21/20 03:40 Sodium Chloride 0.9% [Saline Flush] 10 ml FLUSH ASDIRECTED PRN Saline Lock Insert [OM.PC] Routine
== END 2020-08-21 05:06 | disposition home or self-care (01) ==
LOC: JP.ED 03:27
DX: G43.909 Migraine, unspecified, not intractable, without status migrainosus (principal); Z88.0 Allergy status to penicillin
CPT/HCPCS: 96374; 96375; 99283; J0780; J1200; J1885; J7030; 99284

== ENCOUNTER 2023-05-28 11:51 | Emergency (ER) | payer MEDICAID ==
[2023-05-28 12:12] VITALS: BP 120/60; PULSE 58
[2023-05-28] MEDS ORDERED: Ketorolac 30 MG/ML SDV IVPUSH ONE (12:21)
[2023-05-28] MEDS ORDERED: Prochlorperazine 10 MG/2 ML SDV IVPUSH ONE (12:22)
[2023-05-28] MEDS ORDERED: Sodium Chloride 0.9% 1,000 ML IV SCH (12:30)
== END 2023-05-28 14:37 | disposition home or self-care (01) ==
LOC: JP.ED 11:51
DX: J32.9 Chronic sinusitis, unspecified (principal); Z20.822 Contact with and (suspected) exposure to COVID-19; Z88.0 Allergy status to penicillin; Z79.899 Other long term (current) drug therapy
CPT/HCPCS: 70486; 87635; 96361; 96374; 96375; 99284; J0780; J1885; J7030; U0002